=== PATIENT | male | born 1975 | race American Indian/Alaskan Native ===

== ENCOUNTER 2018-03-26 20:20 | Emergency (ER) | payer MEDICAID ==
--- NOTE | 2018-03-26 23:13 | XRay Report ---
FINAL REPORT PROCEDURE: Right toes. TECHNIQUE: Three views. HISTORY: 2nd toe on right foot swollen painful and dark . COMPARISON: No prior studies are available for comparison. FINDINGS: The bones appear intact without fracture or dislocation. The joint spaces appear satisfactory. There is flexion of the 2nd toe at the DIP joint. The soft tissues appear swollen in the 2nd toe. IMPRESSION: Soft tissue swelling of the 2nd toe.
--- NOTE | 2018-03-27 00:40 | Emergency Department Report ---
ED Lower Extremity HPI - General Chief Complaint: Extremity Injury, Lower Stated Complaint: RIGHT FOOT PAIN Time Seen by Provider: 03/27/18 00:24 Source: patient Mode of arrival: Wheelchair Limitations: Physical Limitation - History of Present Illness Initial Comments: 42-year-old male with a past medical history. He presents to the hospital pain and swelling to his second right toe for 2 weeks. Patient is unsure if he had any specific injury or insect bites. He states at times there is drainage. No complaints of fever. Also states that toe nail is discolored. Patient has sensation in his lower extremities states the pain is minor at this time. - Related Data Previous Rx's Medication Instructions Recorded Last Taken Type Bacitracin/Pramoxine/Aloe Vera 1 applicatio TP TID #1 oint...g. 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 03/27/18 Unknown Rx [Bacitraycin Plus Ointment] Sulfamethoxazole/Trimethoprim 1 each PO BID #20 tablet 03/27/18 Unknown Rx [Bactrim DS TAB] ED Physical Exam - General Limitations: Physical Limitation - Other Other exam information: General: No limitations, patient is alert in no acute distress Head exam: Atraumatic, normocephalic Eyes exam: Normal appearance ENT: Moist mucous membrane Neck exam: Normal inspection, full range of motion Respiratory exam: Clear to auscultation bilateral, no wheezes, rales, crackles Cardiovascular: Normal rate and rhythm, normal heart sounds Abdomen: Soft, nondistended, and nontender, with normal bowel sounds, no rebound, or guarding Extremity: Right foot second toe flex beyond the DIP joints with discolored toe nail. At the nail bed there is mild erythema. No discharge or purulent drainage. 2+ DP pulses. Back: Normal Inspection, full range of motion, no tenderness Neurologic: Alert, oriented x3, cranial nerves intact,. The lesion Psychiatric: normal affect, normal mood Skin: Warm, dry, intact ED Course Vital Signs 03/26/18 20:33 Temperature 98.9 F Pulse Rate 105 H Respiratory 18 Rate Blood Pressure 148/93 O2 Sat by Pulse 100 Oximetry ED Lower Extremity MDM - Radiology Data Radiology results: report reviewed Right second toe x-ray: Soft tissue swelling and no fracture - Medical Decision Making Patient presents to the hospital with discoloration and erythema to second nail bed. No active drainage. Patient treated with topical antibiotics and oral antibiotics podiatry follow-up encouraged. Cast shoe provided to less and trauma to this area while wearing shoes. - Differential Diagnosis paronychia, nailing fungal infection, fracture Critical Care Time: No Critical care attestation.: If time is entered above; I have spent that time in minutes in the direct care of this critically ill patient, excluding procedure time. ED Disposition Clinical Impression: Infected nailbed of toe Disposition: DC-01 TO HOME OR SELFCARE Is pt being admited?: No Does the pt Need Aspirin: No Condition: Stable Instructions: Paronychia (ED) Additional Instructions: Take the medication as prescribed. Follow up with your doctor and instrument and control service person provided. Return if symptoms worsen as indicated by your discharge instructions Prescriptions: Bacitracin/Pramoxine/Aloe Vera [Bacitraycin Plus Ointment] 1 applicatio TP TID # 1 oint...g. Sulfamethoxazole/Trimethoprim [Bactrim DS TAB] 1 each PO BID #20 tablet Referrals: PRIMARY CARE, [Primary Care Provider] - 3-5 Days MOHAN DUARTE DPM [Staff Physician] - 3-5 Days (podiatry) Time of Disposition: 00:42
[2018-03-27 00:53] VITALS: BP 132/76
== END 2018-03-27 00:52 | disposition home or self-care (01) ==
LOC: ED 20:20
DX: L03.031 Cellulitis of right toe (principal); F17.200 Nicotine dependence, unspecified, uncomplicated
CPT/HCPCS: 99283

== ENCOUNTER 2019-09-15 17:29 | Emergency (ER) | payer MEDICAID ==
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
[2019-09-15 17:40] VITALS: BP 123/84
== END 2019-09-15 18:00 | disposition left against medical advice (07) ==
LOC: ED 17:29
DX: B35.6 Tinea cruris (principal); F17.200 Nicotine dependence, unspecified, uncomplicated
CPT/HCPCS: 99281

== ENCOUNTER 2021-04-16 21:19 | Emergency (ER) | payer MEDICAID ==
[2021-04-16 22:31] VITALS: BP 129/69
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
== END 2021-04-17 00:59 | disposition home or self-care (01) ==
LOC: ED 21:19
DX: M70.21 Olecranon bursitis, right elbow (principal); M25.48 Effusion, other site; F17.200 Nicotine dependence, unspecified, uncomplicated; Z98.890 Other specified postprocedural states; Z79.899 Other long term (current) drug therapy; Y93.89 Activity, other specified
CPT/HCPCS: 99282

== ENCOUNTER 2021-09-07 01:44 | Emergency (ER) | payer MEDICAID ==
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
[2021-09-07] MEDS ORDERED: KETOROLAC 30 MG/1 ML INJ IV ONE (04:48)
--- NOTE | 2021-09-07 05:20 | XRay Report ---
CHEST 1 VIEW INDICATION / CLINICAL INFORMATION: chest pain. COMPARISON: None available. FINDINGS: SUPPORT DEVICES: None. HEART / MEDIASTINUM: Endovascular graft is present within the descending thoracic aorta. Heart size i s normal. LUNGS / PLEURA: No significant pulmonary or pleural abnormality. No pneumothorax. Pulmonary vasculari ty is within normal limits. ADDITIONAL FINDINGS: No significant additional findings. IMPRESSION: 1. No acute findings. Signer Name: Katharine Mccarty MD Signed: 09/07/2021 5:16 AM Workstation Name: [id number]
[2021-09-07 05:24] LABS: Basophils # (Auto) 0.1 K/mm3 (0.0-0.1); Basophils % (Auto) 0.8 % (0.0-1.8); Eosinophils # (Auto) 0.1 K/mm3 (0.0-0.4); Eosinophils % (Auto) 0.8 % (0.0-4.3); Hematocrit 42.7 % (35.5-45.6); Hemoglobin 13.8 gm/dl (11.8-15.2); Lymphocytes # (Auto) 2.2 K/mm3 (1.2-5.4); Lymphocytes % (Auto) 26.4 % (13.4-35.0); Mean Corpuscular HGB Conc 32 % (32-34); Mean Corpuscular Volume 86 fl (84-94); Monocytes % (Auto) 11.9 % (0.0-7.3); Platelet Count 297 K/mm3 (140-440); Red Blood Count 4.97 M/mm3 (3.65-5.03); Red Cell Distribution Width 13.6 % (13.2-15.2)
[2021-09-07 06:04] VITALS: BP 126/84
== END 2021-09-07 09:00 | disposition home or self-care (01) ==
LOC: ED 01:44
DX: R07.89 Other chest pain (principal); F17.200 Nicotine dependence, unspecified, uncomplicated; Z79.899 Other long term (current) drug therapy; Z98.890 Other specified postprocedural states
CPT/HCPCS: 36415; 71045; 82270; 83690; 85025; 96374; 99284; J1885